=== PATIENT | male | born 1960 | race African-American/Black ===

== ENCOUNTER 2017-08-04 04:15 | Emergency (ER) | payer MEDICAID ==
[2016-03-03 13:10] VITALS: BMI 19.4
[~2017-08-04 04:15] MED LIST: ACETAMINOPHEN325 MG PO; CATAPRES0.1 MG PO; FERROUS SULFAT325 MG PO; FUROSEMIDE40 MG PO; K-DUR20 MEQ PO; LEVAQUIN500 MG PO; MACROBID100 MG PO; NEURONTIN 300300 MG PO; NORCO 7.5/325 T1 TA1 PO; NORVASC5 MG PO; PROTONIX40 MG PO; SENNA PLUS TA1 UDTAB PO; TIMOPTIC 0.5 % O5 ML EACH EYE; TRAZODONE HCL50 MG PO; TRIMETHOPRIM100 MG PO; VALIUM5 MG PO; VITAMIN D5000 UNIT PO; ZOFRAN ODT4 MG/UDTAB PO
[2017-08-04 04:58] LABS: BASOPHILS 0.1 % (0-2); HEMATOCRIT 34.4 % (42.0-54.0); HEMOGLOBIN 11.9 g/dL (13.5-17.5); IMMATURE GRANULOCYTES 0.1 % (0-5); LYMPHOCYTES 29.7 % (15-50); MCH 31.7 pg (26.0-34.0); MCHC 34.6 g/dL (31.0-37.0); MCV 91.7 fL (80.0-100.0); MEAN PLATELET VOLUME 9.6 fL (7.4-10.4); NEUTROPHILS 60.1 % (40-80); RBC 3.75 10x6/uL (4.20-6.10); WBC 6.9 10x3/uL (4.8-10.8)
[2017-08-04 05:01] LABS: PLATELET COUNT 118 10x3/uL (130-400)
[2017-08-04 05:10] LABS: ALBUMIN 3.2 g/dL (3.4-5.0); ANION GAP 11.3 mmol/L (8-16); BILIRUBIN - TOTAL 0.78 mg/dL (0.2-1.3); CALCIUM 8.5 mg/dL (8.5-10.1); CARBON DIOXIDE 28.2 mmol/L (21.0-32.0); CREATININE - SERUM 1.4 mg/dL (0.6-1.3); POTASSIUM - SERUM 3.5 mmol/L (3.5-5.1); PROTEIN - SERUM 6.7 g/dL (6.4-8.2)
[2017-08-04 05:14] LABS: APPEARANCE HAZY (CLEAR); BILIRUBIN NEGATIVE (NEGATIVE); COLOR DK YELLOW (YELLOW); GLUCOSE NEGATIVE (NEGATIVE); KETONE NEGATIVE (NEGATIVE); NITRITE NEGATIVE (NEGATIVE); PROTEIN 1+ mg/dL (NEGATIVE); UROBILINOGEN NORMAL (NORMAL)
[2017-08-04 05:16] LABS: BACTERIA MANY /hpf (NONE SEEN); EPITHELIAL CELLS 0-5 /hpf (0-5); HYALINE CAST 0-5 /lpf (NONE SEEN); RED CELLS - URINE 0-5 /hpf (0-5)
== END 2017-08-04 06:35 | disposition home or self-care (01) ==
LOC: D.ER 04:15
PROVIDERS: Emergency Medicine
DX: N39.0 Urinary tract infection, site not specified (principal); G90.3 Multi-system degeneration of the autonomic nervous system; I10 Essential (primary) hypertension; Z86.73 Personal history of transient ischemic attack (TIA), and cerebral infarction without residual deficits

== ENCOUNTER → 2018-01-06 08:14 | Outpatient (CLI) | payer MEDICAID ==
[2016-03-03 13:10] VITALS: BMI 19.4
== END | disposition home or self-care (01) ==
LOC: D.CT 08:00
DX: R10.9 Unspecified abdominal pain (principal)